=== PATIENT | female | born 1995 | race American Indian/Alaskan Native ===

== ENCOUNTER 2017-07-08 22:47 | Emergency (ER) | payer SELFPAY ==
--- NOTE | 2017-07-09 01:03 | XRay Report ---
FINAL REPORT EXAM: XR FINGER(S) 2+V LT HISTORY: Glass cut left pinky TECHNIQUE: Frontal view of the left hand and 2 additional views of the left 5th finger PRIORS: None. FINDINGS: The bones are normally aligned and mineralized. The joint spaces are well-preserved. There is no evidence of acute fracture. There is a soft tissue defect along the ulnar side of the 5th finger at the level of the mid middle phalanx. There is no radiopaque foreign body. IMPRESSION: No evidence of acute fracture or foreign body.
[2017-07-09] MEDS ORDERED: XYLOCAINE 1% 20 mL INFILTRATI ONE (03:54)
--- NOTE | 2017-07-09 03:58 | Emergency Department Report ---
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 Patient has no known drug allergies currently takes no medications and has no past medical history. Patient reports that she is up- to-date on her tetanus shot. ED Review of Systems ROS: Stated complaint: LT PINKY FINGER Other details as noted in HPI Constitutional: denies: chills, fever Eyes: denies: eye pain, eye discharge, vision change ENT: denies: ear pain, throat pain Respiratory: denies: cough, shortness of breath, wheezing Cardiovascular: denies: chest pain, palpitations Endocrine: no symptoms reported Gastrointestinal: denies: abdominal pain, nausea, diarrhea Genitourinary: denies: urgency, dysuria, discharge Skin: other (cut on her left pinky) Neurological: denies: headache, weakness, paresthesias Psychiatric: denies: anxiety, depression Hematological/Lymphatic: denies: easy bleeding, easy bruising ED Past Medical Hx - Past Medical History Previous Medical History?: No - Surgical History Past Surgical History?: No - Social History Smoking Status: Never Smoker Substance Use Type: None - Medications Home Medications: Home Medications Medication Instructions Recorded Confirmed Last Taken Type Cephalexin [Keflex] 500 mg PO BID 7 Days #14 capsule 07/09/17 Unknown Rx Laceration Physical Exam - Exam General: Vital signs noted. No distress. Alert and acting appropriately. Wound Length (cm): 3 (centimeters) Laceration Location: Other (left pinky finger) Laceration Exam: Yes Normal Distal CMS, No Foreign Body, No Exposed Tendon, Vessel, or Nerve, No Tendon Injury ED Course Vital Signs 07/09/17 00:23 Temperature 98.6 F Pulse Rate 81 Respiratory 16 Rate Blood Pressure 113/73 O2 Sat by Pulse 100 Oximetry - Laceration /Wound Repair Left Finger Wound Length (cm): 3 Wound's Depth, Shape: into muscle Wound Explored: no foreign body removed Irrigated w/ Saline (ccs): 45 Betadine Prep?: Yes Anesthesia: 1% Lidocaine Volume Anesthetic (ccs): 5 Wound Debrided: minimal Wound Repaired With: sutures Suture Size/Type: 4:0 Number of Sutures: 4 Layer Closure?: No Sterile Dressing Applied?: Yes Progress: Patient tolerated procedure well. ED Medical Decision Making - Radiology Data Radiology results: report reviewed, image reviewed EXAM: XR FINGER(S) 2+V LT HISTORY: Glass cut left pinky TECHNIQUE: Frontal view of the left hand and 2 additional views of the left 5th finger PRIORS: None. FINDINGS: The bones are normally aligned and mineralized. The joint spaces are well-preserved. There is no evidence of acute fracture. There is a soft tissue defect along the ulnar side of the 5th finger at the level of the mid middle phalanx. There is no radiopaque foreign body. IMPRESSION: No evidence of acute fracture or foreign body. Transcribed By: FRANSISCO Dictated By: BRENNAN SINGER MD Electronically Authenticated By: BRENNAN SINGER MD Signed Date/Time: 07/08/17 2100 - Medical Decision Making Patient has been evaluated by this provider fast track. Discussed the patient that we'll need to clean the wound and suture it. Patient verbalized understanding. Critical care attestation.: If time is entered above; I have spent that time in minutes in the direct care of this critically ill patient, excluding procedure time. ED Disposition Clinical Impression: Laceration of finger of left hand Qualifiers: Encounter type: initial encounter Finger: little finger Damage to nail status: without damage Foreign body presence: without foreign body Qualified Code(s): S61.217A - Laceration without foreign body of left little finger without damage to nail, initial encounter Disposition: DC- TO HOME OR SELFCARE Is pt being admited?: No Does the pt Need Aspirin: No Condition: Stable Instructions: Finger Laceration (ED), Suture Care (ED) Additional Instructions: Please return to the emergency room for suture removal in 7 days. Please keep the area clean and dry. Continue with antibiotics. He can take Tylenol or ibuprofen for pain management. Prescriptions: Cephalexin [Keflex] 500 mg PO BID 7 Days #14 capsule Referrals: NAKUL RODRIGUEZ MD [Primary Care Provider] - 3-5 Days Forms: Work/School Release Form(ED)
[2017-07-09] MEDS ORDERED: TYLENOL PO ONE (04:48)
[2017-07-09 05:47] VITALS: BP 128/70
== END 2017-07-09 05:47 | disposition home or self-care (01) ==
LOC: ED 22:47
DX: S61.217A Laceration without foreign body of left little finger without damage to nail, initial encounter (principal); W26.8XXA Contact with other sharp object(s), not elsewhere classified, initial encounter; Y93.89 Activity, other specified; Y92.89 Other specified places as the place of occurrence of the external cause; Y99.8 Other external cause status

== ENCOUNTER 2021-08-06 08:37 | Emergency (ER) | payer OTHER ==
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
[2021-08-06 10:42] VITALS: BP 113/65
== END 2021-08-06 11:12 | disposition home or self-care (01) ==
LOC: ED 08:37
DX: S39.012A Strain of muscle, fascia and tendon of lower back, initial encounter (principal); Z79.899 Other long term (current) drug therapy; V87.7XXA Person injured in collision between other specified motor vehicles (traffic), initial encounter; Y93.89 Activity, other specified; Y92.488 Other paved roadways as the place of occurrence of the external cause
CPT/HCPCS: 99282